=== PATIENT | male | born 1955 | race Caucasian/White ===

== ENCOUNTER → 2022-06-05 | Outpatient (CLI) | payer OTHER, SELFPAY ==
[~2022-06-05] MED LIST: IOHEXOL 350 MG/ML 100ML INFUS..BTL IV ONE; METOPROLOL TARTRATE 1 MG/ML 5ML VIAL IV ONE
== END | disposition home or self-care (01) ==
LOC: RAH 07:58
PROVIDERS: ATTEND Student in an Organized Health Care Education/Training Program
DX: I50.20 Unspecified systolic (congestive) heart failure (principal); I25.10 Atherosclerotic heart disease of native coronary artery without angina pectoris
CPT/HCPCS: 75574; Q9967; J3490

== ENCOUNTER 2022-06-28 19:29 | Inpatient (IN) | payer OTHER, MEDICARE ==
[~2022-06-28] VITALS: Ht 188 cm; Wt 72.4 kg
[2022-06-28] MEDS ORDERED: NITROGLYCERIN 50MG/D5W 250ML 250 BOT IV SCH (19:39)
[2022-06-28] MEDS ORDERED: ASPIRIN 325MG TAB PO ONE (20:00)
[2022-06-28] MEDS ORDERED: 0.9%NACL 1000ML 1,000 ML IV SCH ×2 (20:00→23:30)
[2022-06-28] MEDS ORDERED: ASPIRIN 81MG CHEW TAB PO ONE (20:00)
[2022-06-28] MEDS ORDERED: 0.9%NACL 1000ML 1,914 ML IV ONE (20:00)
[2022-06-28 20:14] LABS: EOSINOPHILS % (AUTO) 2.9 % (0.0-8.0); HEMATOCRIT 35.9 % (42-54); LYMPHOCYTES % (AUTO) 26.9 % (21.0-51.0); MEAN CORPUSCULAR HEMOGLOBIN 30.2 pg (27.0-33.0); MEAN CORPUSCULAR HGB CONC 35.4 g/dL (32.0-36.0); MEAN CORPUSCULAR VOLUME 85.5 fL (79-99); MONOCYTES % (AUTO) 10.6 % (3.0-13.0); NEUTROPHILS % (AUTO) 58.2 % (40.0-77.0); PLATELET COUNT (AUTO) 176 K/uL (130-400); WHITE BLOOD COUNT (AUTO) 5.1 K/uL (4.8-10.8)
[2022-06-28 20:23] LABS: CREATININE 1.2 mg/dL (0.5-1.5); POTASSIUM 3.8 mmol/L (3.5-5.1)
[2022-06-28 20:24] LABS: INR 0.94 (0.85-1.15); PROTHROMBIN TIME 10.3 SEC (9.6-11.6)
[2022-06-28 20:25] LABS: PARTIAL THROMBOPLASTIN TIME 22.8 SEC (26.3-35.5)
[2022-06-28 20:32] LABS: ALBUMIN 3.9 g/dL (3.5-5.0); TOTAL PROTEIN, SERUM 7.3 g/dL (6.0-8.3)
[2022-06-28 20:50] LABS: B-TYPE NATRIURETIC PEPTIDE 228 pg/mL (0-100)
[2022-06-28] MEDS ORDERED: IOHEXOL 350 MG/ML 100ML INFUS..BTL IV ONE (21:32)
[2022-06-28] MEDS ORDERED: MORPHINE 2 MG SYG IV PRN (23:30)
[2022-06-28] MEDS ORDERED: ACETAMINOPHEN 325 MG TAB PO PRN ×2 (23:30)
[2022-06-28] MEDS ORDERED: MORPHINE 4 MG SYG IV PRN (23:30)
[2022-06-28] MEDS ORDERED: ONDANSETRON 4MG INJ IV PRN (23:30)
[2022-06-29] VITALS (15 sets, daily range): BP systolic 88–172; BP diastolic 54–91
[2022-06-29] MEDS: HEPARIN 25,000 UNITS/250ML D5W 250 ML IV PRN ×2 (00:03→06:40)
[2022-06-29] MEDS ORDERED: HEPARIN 5,000 UNIT VIAL ONE (00:20)
[2022-06-29] MEDS: DOXYCYCLINE 100MG+NS 250ML 250 ML IV SCH ×3 (00:30→22:58)
[2022-06-29] MEDS: CEFTRIAXONE 1G VIAL IV SCH ×2 (00:30→22:58)
[2022-06-29] MEDS ORDERED: SODIUM CHLORIDE 3% FOR INHALATION 4 ML/AMP VIAL.NEB IH ONE ×3 (01:18→11:24)
[2022-06-29] MEDS ORDERED: FURO20TA4 PO (04:30)
[2022-06-29] MEDS ORDERED: CLOP75TA14 PO (04:30)
[2022-06-29] MEDS ORDERED: METF-446 PO (04:30)
[2022-06-29] MEDS ORDERED: CARV3.1262 PO (04:30)
[2022-06-29] MEDS ORDERED: LISI5TAB21 PO (04:30)
[2022-06-29 04:49] LABS: APPEARANCE,URINE CLEAR (CLEAR); BILIRUBIN,URINE NEGATIVE (NEGATIVE); COLOR,URINE LIGHT-YELLOW (YELLOW); GLUCOSE, URINE (UA) >=1000 mg/dL (NEGATIVE); KETONES,URINE NEGATIVE (NEGATIVE); LEUKOCYTE ESTERASE ,URINE NEGATIVE Leu/uL (NEGATIVE); NITRATE,URINE NEGATIVE (NEGATIVE); OCCULT BLOOD,URINE NEGATIVE (NEGATIVE); PROTEIN,URINE NEGATIVE (NEGATIVE); UROBILINOGEN,URINE 0.2 mg/dL (0.2-1.0)
[2022-06-29 05:00] LABS: WBC,URINE 0-1 /HPF (0-1)
[2022-06-29] MEDS ORDERED: DEXTROSE 50%-WATER 50 ML DISP.SYRIN IV PRN ×2 (05:00→09:00)
[2022-06-29] MEDS ORDERED: GLUCAGON 1MG KIT 1 MG ML IM PRN ×2 (05:00→09:00)
[2022-06-29] MEDS: INSULIN HUMULIN R 100 UNIT/ML 3ML SQ SCH ×4 (06:00→20:51)
[2022-06-29 06:20] LABS: INR 1.01 (0.85-1.15)
[2022-06-29 06:21] LABS: PARTIAL THROMBOPLASTIN TIME 76.7 SEC (26.3-35.5)
[2022-06-29 06:29] LABS: CREATININE 0.9 mg/dL (0.5-1.5); MAGNESIUM 1.8 mg/dL (1.80-2.40); PHOSPHORUS 4.2 mg/dL (2.5-4.9); POTASSIUM 3.6 mmol/L (3.5-5.1)
[2022-06-29 06:30] LABS: BASOPHILS % (AUTO) 0.9 % (0.0-5.0); EOSINOPHILS % (AUTO) 4.4 % (0.0-8.0); HEMATOCRIT 31.5 % (42-54); LYMPHOCYTES % (AUTO) 32.3 % (21.0-51.0); MEAN CORPUSCULAR HEMOGLOBIN 30.1 pg (27.0-33.0); MEAN CORPUSCULAR HGB CONC 34.9 g/dL (32.0-36.0); MEAN CORPUSCULAR VOLUME 86.3 fL (79-99); MONOCYTES % (AUTO) 10.2 % (3.0-13.0); NEUTROPHILS % (AUTO) 51.7 % (40.0-77.0); PLATELET COUNT (AUTO) 141 K/uL (130-400); RED BLOOD CELL COUNT(AUTO) 3.65 MIL/uL (4.50-6.20); RED CELL DISTRIBUTION WIDTH 13.1 % (11.0-15.5); WHITE BLOOD COUNT (AUTO) 4.3 K/uL (4.8-10.8)
[2022-06-29 06:34] LABS: HEMOGLOBIN A1C 9.7 % (4.0-6.0)
[2022-06-29] MEDS ORDERED: 0.9%NACL 1000ML 1,000 ML IV SCH (09:00)
[2022-06-29] MEDS: ASPIRIN 81MG CHEW TAB PO SCH (10:01)
[2022-06-29] MEDS: FAMOTIDINE 20MG VIAL IV SCH (10:02)
[2022-06-29] MEDS: CARVEDILOL 3.125 MG TABLET PO SCH ×2 (10:02→19:52)
[2022-06-30] VITALS (41 sets, daily range): BP systolic 65–197; BP diastolic 35–130
[2022-06-30 04:02] LABS: ABG BASE EXCESS -0.8 mmol/L (-2.0-3.0); ABG HCO3 23.2 mmol/L (21.0-28.0); ABG OXYGEN SATURATION 97.9 % (95.0-99.0); ABG PCO2 37 mmHg (35-48)
[2022-06-30 04:50] LABS: HEMATOCRIT 31.6 % (42-54); MEAN CORPUSCULAR HEMOGLOBIN 30.1 pg (27.0-33.0); MEAN CORPUSCULAR HGB CONC 34.5 g/dL (32.0-36.0); MEAN CORPUSCULAR VOLUME 87.3 fL (79-99); RED BLOOD CELL COUNT(AUTO) 3.62 MIL/uL (4.50-6.20); RED CELL DISTRIBUTION WIDTH 13.2 % (11.0-15.5); WHITE BLOOD COUNT (AUTO) 5.3 K/uL (4.8-10.8)
[2022-06-30 05:02] LABS: INR 0.98 (0.85-1.15); PROTHROMBIN TIME 10.7 SEC (9.6-11.6)
[2022-06-30 05:04] LABS: PARTIAL THROMBOPLASTIN TIME 24.2 SEC (26.3-35.5)
[2022-06-30 05:10] LABS: ALBUMIN 3.2 g/dL (3.5-5.0); CREATININE 0.7 mg/dL (0.5-1.5); POTASSIUM 3.8 mmol/L (3.5-5.1); THYROID STIMULATING HORMONE 3.23 uIU/mL (0.36-3.74); TOTAL PROTEIN, SERUM 6.1 g/dL (6.0-8.3)
[2022-06-30 05:21] LABS: HEMOGLOBIN A1C 10.8 % (4.0-6.0)
[2022-06-30] MEDS: INSULIN HUMULIN R 100 UNIT/ML 3ML SQ SCH ×2 (05:42→11:30)
[2022-06-30] MEDS ORDERED: FUROSEMIDE 20MG VIAL IV SCH (09:00)
[2022-06-30] MEDS ORDERED: SPIRONOLACTONE 25 MG TAB PO SCH (09:00)
[2022-06-30] MEDS: FAMOTIDINE 20MG VIAL IV SCH ×2 (09:13→20:03)
[2022-06-30] MEDS: ASPIRIN 81MG CHEW TAB PO SCH (09:14)
[2022-06-30] MEDS: CARVEDILOL 3.125 MG TABLET PO SCH (09:15)
[2022-06-30] MEDS: DOXYCYCLINE 100MG+NS 250ML 250 ML IV SCH (12:33)
[2022-06-30] MEDS ORDERED: 0.9%NACL 1000ML 1,000 ML IV ONE (13:43)
[2022-06-30] MEDS ORDERED: PROPOFOL 10 MG/ML 20ML VIAL IV ONE (14:37)
[2022-06-30] MEDS ORDERED: EPINEPHRINE PF 1MG (1:1,000) 1 MG/ML AMP ONE (14:37)
[2022-06-30] MEDS ORDERED: NOREPINEPHRINE BITARTRATE 1 MG/1 ML ML IV ONE (14:37)
[2022-06-30] MEDS ORDERED: PROTAMINE SULFATE 10 MG/ML 25ML VIAL IV ONE (14:37)
[2022-06-30] MEDS ORDERED: HEPARIN 10,000 UNIT/10ML (1,000 UNIT/ML) VIAL ONE (14:37)
[2022-06-30] MEDS ORDERED: AMINOCAPROIC ACID 5,000MG VIAL ONE (14:37)
[2022-06-30] MEDS ORDERED: FENTANYL CITRATE PF 50 MCG/1 ML 20ML VIAL IJ ONE (14:37)
[2022-06-30] MEDS ORDERED: ESMOLOL HCL 10 MG/ML 10 ML VIAL ONE (14:37)
[2022-06-30] MEDS ORDERED: MIDAZOLAM HCL 1 MG/ML 2ML VIAL ONE (14:38)
[2022-06-30] MEDS ORDERED: ROCURONIUM 10MG/1ML SYR 10 MG/ML ML ONE (14:38)
[2022-06-30] MEDS ORDERED: KETAMINE 50MG/ML SYRINGE 50 MG/ML DISP.SYRIN IV ONE (14:38)
[2022-06-30] MEDS ORDERED: CEFAZOLIN SODIUM 2 GM VIAL IV ONE (15:00)
[2022-06-30 16:33] LABS: ABG BASE EXCESS -3.3 mmol/L (-2.0-3.0); ABG HCO3 21.6 mmol/L (21.0-28.0); ABG OXYGEN SATURATION 99.2 % (95.0-99.0); ABG PCO2 38 mmHg (35-48)
[2022-06-30] MEDS ORDERED: CEFAZOLIN SODIUM 1 GM VIAL IVP SCH (17:00)
[2022-06-30] MEDS ORDERED: GLUCAGON 1MG KIT 1 MG ML IM PRN (17:30)
[2022-06-30] MEDS ORDERED: ACETAMINOPHEN 650 MG SUPPOSITORY RC PRN (17:30)
[2022-06-30] MEDS ORDERED: DEXTROSE 50%-WATER 50 ML DISP.SYRIN IV PRN (17:30)
[2022-06-30] MEDS ORDERED: 0.9%NACL 10ML VIAL IVP PRN (17:30)
[2022-06-30] MEDS ORDERED: 0.9%NACL 1000ML 1,000 ML IV SCH (17:30)
[2022-06-30] MEDS ORDERED: ALBUMIN (HUMAN) 5% 250 ML IV PRN (17:30)
[2022-06-30] MEDS ORDERED: ACETAMINOPHEN 325 MG TAB PO PRN (17:30)
[2022-06-30] MEDS ORDERED: NOREPINEPHRIN 4MG/NS 250ML 250 ML IV PRN (17:30)
[2022-06-30] MEDS ORDERED: ONDANSETRON 4MG INJ IV PRN (17:30)
[2022-06-30] MEDS ORDERED: NITROGLYCERIN 50MG/D5W 250ML 250 BOT IV SCH (17:30)
[2022-06-30] MEDS ORDERED: POTASSIUM PHOS 15 mMOL+NS250ML 250 ML IV PRN (17:30)
[2022-06-30] MEDS ORDERED: MORPHINE 2 MG SYG IV PRN ×2 (17:30)
[2022-06-30] MEDS ORDERED: AMINOCAPROIC ACID 5,000MG VIAL 15,000 MG in 0.9% NACL 250ML 250 ML IV SCH (17:30)
[2022-06-30] MEDS ORDERED: 0.9% NACL 500ML IV.SOLN 500 ML IV SCH (17:30)
[2022-06-30] MEDS ORDERED: PROPOFOL 1000 MG/100 ML 100 ML IV PRN (17:30)
[2022-06-30 18:01] LABS: ABG BASE EXCESS -6.7 mmol/L (-2.0-3.0); ABG OXYGEN SATURATION 99.4 % (95.0-99.0); ABG PCO2 39 mmHg (35-48)
[2022-06-30] MEDS ORDERED: KETAMINE HCL 100 MG/ML 5ML VIAL IJ ONE (18:03)
[2022-06-30] MEDS ORDERED: SODIUM BICARB 8.4% 50ML SYRINGE ONE (18:07)
[2022-06-30 18:51] LABS: HEMATOCRIT 31.1 % (42-54); MEAN CORPUSCULAR HEMOGLOBIN 30.3 pg (27.0-33.0); MEAN CORPUSCULAR HGB CONC 34.7 g/dL (32.0-36.0); MEAN CORPUSCULAR VOLUME 87.1 fL (79-99); RED BLOOD CELL COUNT(AUTO) 3.57 MIL/uL (4.50-6.20); RED CELL DISTRIBUTION WIDTH 13.2 % (11.0-15.5)
[2022-06-30 18:53] LABS: ABG BASE EXCESS -2.2 mmol/L (-2.0-3.0); ABG HCO3 22.8 mmol/L (21.0-28.0); ABG PCO2 40 mmHg (35-48)
[2022-06-30 19:02] LABS: CREATININE 0.7 mg/dL (0.5-1.5); MAGNESIUM 1.4 mg/dL (1.80-2.40); PHOSPHORUS 3.9 mg/dL (2.5-4.9); POTASSIUM 4.9 mmol/L (3.5-5.1)
[2022-06-30] MEDS: SODIUM BICARB 50MEQ 50ML VIAL IV PRN ×4 (19:11→22:26)
[2022-06-30] MEDS: MAGNESIUM 2GM PREMIX 50ML 50 ML IV PRN (19:12)
[2022-06-30 19:34] LABS: INR 1.25 (0.85-1.15); PROTHROMBIN TIME 13.5 SEC (9.6-11.6)
[2022-06-30 19:36] LABS: PARTIAL THROMBOPLASTIN TIME 27.1 SEC (26.3-35.5)
[2022-06-30] MEDS ORDERED: ALBUMIN (HUMAN) 5% 250 ML IV ONE (20:02)
[2022-06-30] MEDS: ATORVASTATIN 40 MG TABLET PO SCH (20:03)
[2022-06-30] MEDS: INSULIN REGULAR, HUMAN 3ML 100 UNIT in 0.9%NACL 100ML 99 ML IV SCH ×2 (20:12)
[2022-06-30 20:19] LABS: ABG BASE EXCESS -2.4 mmol/L (-2.0-3.0); ABG HCO3 22.5 mmol/L (21.0-28.0); ABG OXYGEN SATURATION 98.6 % (95.0-99.0); ABG PCO2 39 mmHg (35-48)
[2022-06-30] MEDS: POTASSIUM CHLORIDE 20MEQ/100ML 100 ML IV PRN ×2 (20:31→21:25)
[2022-06-30] MEDS: CALCIUM GLUC 1GM 1 GM in 0.9%NACL 50ML 50 ML IV PRN ×3 (20:57→23:39)
[2022-06-30 21:22] LABS: ABG BASE EXCESS -2.6 mmol/L (-2.0-3.0); ABG HCO3 21.8 mmol/L (21.0-28.0); ABG OXYGEN SATURATION 98.5 % (95.0-99.0); ABG PCO2 36 mmHg (35-48)
[2022-06-30 22:25] LABS: ABG BASE EXCESS -1.5 mmol/L (-2.0-3.0); ABG HCO3 22.4 mmol/L (21.0-28.0); ABG OXYGEN SATURATION 98.5 % (95.0-99.0); ABG PCO2 35 mmHg (35-48)
[2022-06-30 22:25] LABS: HEMATOCRIT 28.8 % (42-54); MEAN CORPUSCULAR HEMOGLOBIN 30.4 pg (27.0-33.0); MEAN CORPUSCULAR HGB CONC 35.1 g/dL (32.0-36.0); MEAN CORPUSCULAR VOLUME 86.7 fL (79-99); RED BLOOD CELL COUNT(AUTO) 3.32 MIL/uL (4.50-6.20); RED CELL DISTRIBUTION WIDTH 13.4 % (11.0-15.5); WHITE BLOOD COUNT (AUTO) 22.7 K/uL (4.8-10.8)
[2022-06-30] MEDS: CEFAZOLIN SODIUM 1 GM VIAL IV SCH (22:26)
[2022-06-30 22:33] LABS: MAGNESIUM 2.3 mg/dL (1.80-2.40); POTASSIUM 4.3 mmol/L (3.5-5.1)
[2022-06-30 23:32] LABS: ABG BASE EXCESS 0.7 mmol/L (-2.0-3.0); ABG HCO3 23.6 mmol/L (21.0-28.0); ABG OXYGEN SATURATION 98.2 % (95.0-99.0); ABG PCO2 32 mmHg (35-48)
[2022-07-01] VITALS (128 sets, daily range): BP systolic 67–179; BP diastolic 32–76
[2022-07-01 00:41] LABS: ABG BASE EXCESS 0.8 mmol/L (-2.0-3.0); ABG HCO3 24.4 mmol/L (21.0-28.0); ABG OXYGEN SATURATION 98.5 % (95.0-99.0); ABG PCO2 35 mmHg (35-48)
[2022-07-01] MEDS: POTASSIUM CHLORIDE 20MEQ/100ML 100 ML IV PRN ×8 (00:42→09:17)
[2022-07-01 02:52] LABS: MAGNESIUM 1.9 mg/dL (1.80-2.40)
[2022-07-01 02:53] LABS: POTASSIUM 2.7 mmol/L (3.5-5.1)
[2022-07-01] MEDS: MAGNESIUM 2GM PREMIX 50ML 50 ML IV PRN ×2 (03:46→15:35)
[2022-07-01 04:18] LABS: HEMATOCRIT 28.6 % (42-54); MEAN CORPUSCULAR HEMOGLOBIN 30.1 pg (27.0-33.0); MEAN CORPUSCULAR HGB CONC 35.3 g/dL (32.0-36.0); MEAN CORPUSCULAR VOLUME 85.1 fL (79-99); RED BLOOD CELL COUNT(AUTO) 3.36 MIL/uL (4.50-6.20); RED CELL DISTRIBUTION WIDTH 13.5 % (11.0-15.5); WHITE BLOOD COUNT (AUTO) 17.1 K/uL (4.8-10.8)
[2022-07-01 04:19] LABS: ABG BASE EXCESS -0.1 mmol/L (-2.0-3.0); ABG HCO3 24.1 mmol/L (21.0-28.0); ABG OXYGEN SATURATION 98.6 % (95.0-99.0); ABG PCO2 38 mmHg (35-48)
[2022-07-01 04:29] LABS: CREATININE 1.2 mg/dL (0.5-1.5); INR 1.07 (0.85-1.15); MAGNESIUM 2.5 mg/dL (1.80-2.40); PHOSPHORUS 0.9 mg/dL (2.5-4.9); PROTHROMBIN TIME 11.6 SEC (9.6-11.6)
[2022-07-01 04:30] LABS: PARTIAL THROMBOPLASTIN TIME 24.4 SEC (26.3-35.5)
[2022-07-01 05:29] LABS: ABG HCO3 23.5 mmol/L (21.0-28.0); ABG OXYGEN SATURATION 98.5 % (95.0-99.0); ABG PCO2 38 mmHg (35-48)
[2022-07-01] MEDS: CEFAZOLIN SODIUM 1 GM VIAL IV SCH ×2 (05:35→13:47)
[2022-07-01] MEDS: SODIUM BICARB 50MEQ 50ML VIAL IV PRN (05:35)
[2022-07-01] MEDS: EPINEPHRINE PF 1MG (1:1,000) 10 MG in 0.9% NACL 250ML 250 ML IV PRN (07:51)
[2022-07-01] MEDS: FAMOTIDINE 20MG VIAL IV SCH (07:52)
[2022-07-01] MEDS: FUROSEMIDE 20MG VIAL IV SCH ×2 (07:52→20:33)
[2022-07-01] MEDS: ASPIRIN 81MG CHEW TAB PO SCH (07:53)
[2022-07-01 07:58] LABS: ABG BASE EXCESS 1.4 mmol/L (-2.0-3.0); ABG OXYGEN SATURATION 98.5 % (95.0-99.0); ABG PCO2 36 mmHg (35-48)
[2022-07-01] MEDS: INSULIN REGULAR, HUMAN 3ML 100 UNIT in 0.9%NACL 100ML 99 ML IV SCH ×2 (07:58)
[2022-07-01 11:46] LABS: POTASSIUM 4.4 mmol/L (3.5-5.1)
[2022-07-01] MEDS: CALCIUM GLUC 1GM 1 GM in 0.9%NACL 50ML 50 ML IV PRN ×4 (11:46→15:25)
[2022-07-01] MEDS: TRAMADOL HCL 50 MG TABLET PO PRN ×3 (12:18→23:41)
[2022-07-01] MEDS ORDERED: IBUP-2482 PO (14:41)
[2022-07-01] MEDS ORDERED: FAMO-136 PO (14:41)
[2022-07-01 15:29] LABS: MAGNESIUM 1.9 mg/dL (1.80-2.40); PHOSPHORUS 3.8 mg/dL (2.5-4.9); POTASSIUM 4.4 mmol/L (3.5-5.1)
[2022-07-01] MEDS ORDERED: NOREPINEPHRIN 8MG/250ML NS PMX 250 ML IV PRN (17:30)
[2022-07-01 20:07] LABS: MAGNESIUM 2.4 mg/dL (1.80-2.40); POTASSIUM 4.3 mmol/L (3.5-5.1)
[2022-07-01] MEDS: ATORVASTATIN 40 MG TABLET PO SCH (20:28)
[2022-07-01] MEDS: FAMOTIDINE 20MG TAB PO SCH (20:28)
[2022-07-02] VITALS (60 sets, daily range): BP systolic 92–160; BP diastolic 34–78
[2022-07-02 04:12] LABS: CREATININE 0.9 mg/dL (0.5-1.5); POTASSIUM 4.7 mmol/L (3.5-5.1)
[2022-07-02 04:58] LABS: HEMATOCRIT 23.7 % (42-54); MEAN CORPUSCULAR HEMOGLOBIN 30.3 pg (27.0-33.0); MEAN CORPUSCULAR HGB CONC 34.6 g/dL (32.0-36.0); MEAN CORPUSCULAR VOLUME 87.5 fL (79-99); RED BLOOD CELL COUNT(AUTO) 2.71 MIL/uL (4.50-6.20); RED CELL DISTRIBUTION WIDTH 14.4 % (11.0-15.5); WHITE BLOOD COUNT (AUTO) 10.9 K/uL (4.8-10.8)
[2022-07-02] MEDS: METOPROLOL TARTRATE 25 MG TAB PO SCH ×2 (08:46→19:58)
[2022-07-02] MEDS: TRAMADOL HCL 50 MG TABLET PO PRN ×2 (08:51→19:58)
[2022-07-02] MEDS: ASPIRIN 81MG CHEW TAB PO SCH (08:51)
[2022-07-02] MEDS: FAMOTIDINE 20MG TAB PO SCH ×2 (08:52→19:54)
[2022-07-02] MEDS: FUROSEMIDE 20 MG TABLET PO SCH ×2 (08:52→16:03)
[2022-07-02] MEDS: ACETAMINOPHEN 325 MG TAB PO PRN (09:41)
[2022-07-02] MEDS: INSULIN REGULAR, HUMAN 3ML 100 UNIT in 0.9%NACL 100ML 99 ML IV SCH ×2 (10:06)
[2022-07-02] MEDS ORDERED: ALBUMIN (HUMAN) 5% 250 ML IV ONE (11:30)
[2022-07-02] MEDS: ATORVASTATIN 40 MG TABLET PO SCH (19:54)
[2022-07-02] MEDS: INSULIN HUMULIN R 100 UNIT/ML 3ML SQ SCH (20:50)
[2022-07-02] MEDS: EPINEPHRINE PF 1MG (1:1,000) 10 MG in 0.9% NACL 250ML 250 ML IV PRN (20:54)
[2022-07-02] MEDS ORDERED: EPINEPHRINE 1 MG/ML 30ML VIAL IJ ONE (23:21)
[2022-07-03] VITALS (35 sets, daily range): BP systolic 89–148; BP diastolic 34–72
[2022-07-03 03:55] LABS: HEMATOCRIT 21.2 % (42-54); MEAN CORPUSCULAR HEMOGLOBIN 30.3 pg (27.0-33.0); MEAN CORPUSCULAR HGB CONC 34.4 g/dL (32.0-36.0); RED BLOOD CELL COUNT(AUTO) 2.41 MIL/uL (4.50-6.20); RED CELL DISTRIBUTION WIDTH 14.2 % (11.0-15.5); WHITE BLOOD COUNT (AUTO) 10.3 K/uL (4.8-10.8)
[2022-07-03 04:12] LABS: CREATININE 0.9 mg/dL (0.5-1.5); POTASSIUM 4.3 mmol/L (3.5-5.1)
[2022-07-03] MEDS: INSULIN HUMULIN R 100 UNIT/ML 3ML SQ SCH ×4 (06:42→20:20)
[2022-07-03] MEDS: METOPROLOL TARTRATE 25 MG TAB PO SCH ×2 (07:56→20:21)
[2022-07-03] MEDS: ASPIRIN 81MG CHEW TAB PO SCH (08:30)
[2022-07-03] MEDS: FAMOTIDINE 20MG TAB PO SCH ×2 (08:30→20:15)
[2022-07-03] MEDS: FUROSEMIDE 20 MG TABLET PO SCH ×2 (08:31→16:27)
[2022-07-03] MEDS: ENOXAPARIN SODIUM 30 MG/0.3 ML SQ SCH (08:32)
[2022-07-03] MEDS: ATORVASTATIN 40 MG TABLET PO SCH (20:15)
[2022-07-03] MEDS: ACETAMINOPHEN 325 MG TAB PO PRN (20:16)
[2022-07-04] VITALS (31 sets, daily range): BP systolic 85–116; BP diastolic 34–73
[2022-07-04] MEDS: ACETAMINOPHEN 325 MG TAB PO PRN (04:33)
[2022-07-04 05:33] LABS: HEMATOCRIT 23.2 % (42-54); MEAN CORPUSCULAR HEMOGLOBIN 30.1 pg (27.0-33.0); MEAN CORPUSCULAR HGB CONC 34.9 g/dL (32.0-36.0); MEAN CORPUSCULAR VOLUME 86.2 fL (79-99); RED BLOOD CELL COUNT(AUTO) 2.69 MIL/uL (4.50-6.20); RED CELL DISTRIBUTION WIDTH 13.7 % (11.0-15.5); WHITE BLOOD COUNT (AUTO) 5.5 K/uL (4.8-10.8)
[2022-07-04] MEDS: INSULIN HUMULIN R 100 UNIT/ML 3ML SQ SCH ×4 (06:02→20:17)
[2022-07-04 06:07] LABS: POTASSIUM 3.3 mmol/L (3.5-5.1)
[2022-07-04] MEDS ORDERED: KCL 20 MEQ ERTAB PO ONE (06:22)
[2022-07-04] MEDS ORDERED: POTASSIUM CHLORIDE 10% ELIXIR 20 MEQ/15 ML UDCUP PO PRN (06:30)
[2022-07-04] MEDS: TRAMADOL HCL 50 MG TABLET PO PRN (06:37)
[2022-07-04] MEDS: ASPIRIN 81MG CHEW TAB PO SCH (08:06)
[2022-07-04] MEDS: ENOXAPARIN SODIUM 30 MG/0.3 ML SQ SCH (08:06)
[2022-07-04] MEDS: KCL 20 MEQ ERTAB PO PRN ×2 (08:07→16:19)
[2022-07-04] MEDS: FAMOTIDINE 20MG TAB PO SCH ×2 (08:07→20:15)
[2022-07-04] MEDS: LACTULOSE 20 GM/30 ML UDCUP PO PRN (17:06)
[2022-07-04] MEDS: ATORVASTATIN 40 MG TABLET PO SCH (20:15)
[2022-07-05] MEDS: ACETAMINOPHEN 325 MG TAB PO PRN (02:32)
[2022-07-05 05:18] VITALS: BP 100/54
[2022-07-05] MEDS: INSULIN HUMULIN R 100 UNIT/ML 3ML SQ SCH ×3 (06:36→16:11)
[2022-07-05 07:00] VITALS: BP 106/63
[2022-07-05] MEDS: FAMOTIDINE 20MG TAB PO SCH (08:45)
[2022-07-05] MEDS: ASPIRIN 81MG CHEW TAB PO SCH (08:45)
[2022-07-05] MEDS: ENOXAPARIN SODIUM 30 MG/0.3 ML SQ SCH (08:46)
[2022-07-05] MEDS: KCL 20 MEQ ERTAB PO PRN (08:49)
[2022-07-05] MEDS ORDERED: FUROSEMIDE 20 MG TABLET PO SCH (09:00)
[2022-07-05] MEDS ORDERED: DOCUSATE SODIUM 100 MG CAP PO SCH (09:00)
[2022-07-05] MEDS: LACTULOSE 20 GM/30 ML UDCUP PO PRN (10:10)
[2022-07-05 11:00] VITALS: BP 106/62
[2022-07-05] MEDS ORDERED: ATOR40TA69 PO (12:05)
[2022-07-05] MEDS ORDERED: SPIR25TA PO (12:05)
[2022-07-05] MEDS ORDERED: FURO20TA6 PO (12:05)
[2022-07-05] MEDS ORDERED: ASPI-1005 PO (12:05)
[2022-07-05 16:00] VITALS: BP 107/58
== END 2022-07-05 14:05 | disposition home or self-care (01) | DRG 233 ==
LOC: EDH 19:29 → INTOOBSV 22:45 → EDHIP 22:45 → OBSVTOIN 22:45 → 2CH 06-29 08:00 → 2DH 06-29 09:16 → 2CV 06-30 14:14 → 2BH 07-01 16:38 → 2DH 07-04 17:12
PROVIDERS: ADMIT Internal Medicine; ATTEND Internal Medicine
PROC: 4A023N8 Measurement of Cardiac Sampling and Pressure, Bilateral, Percutaneous Approach (ICD-10-PCS; 2022-06-29)
PROC: B2111ZZ Fluoroscopy of Multiple Coronary Arteries using Low Osmolar Contrast (ICD-10-PCS; 2022-06-29)
PROC: B2151ZZ Fluoroscopy of Left Heart using Low Osmolar Contrast (ICD-10-PCS; 2022-06-29)
PROC: 30233N1 Transfusion of Nonautologous Red Blood Cells into Peripheral Vein, Percutaneous Approach (ICD-10-PCS; 2022-06-30)
PROC: 02100Z9 Bypass Coronary Artery, One Artery from Left Internal Mammary, Open Approach (ICD-10-PCS; principal; 2022-06-30 14:52)
PROC: 0211093 Bypass Coronary Artery, Two Arteries from Coronary Artery with Autologous Venous Tissue, Open Approach (ICD-10-PCS; 2022-06-30 14:52)
PROC: 06BQ4ZZ Excision of Left Saphenous Vein, Percutaneous Endoscopic Approach (ICD-10-PCS; 2022-06-30 14:52)
DX: I25.110 Atherosclerotic heart disease of native coronary artery with unstable angina pectoris (principal); I50.23 Acute on chronic systolic (congestive) heart failure; E87.1 Hypo-osmolality and hyponatremia; D62 Acute posthemorrhagic anemia; I11.0 Hypertensive heart disease with heart failure; E11.65 Type 2 diabetes mellitus with hyperglycemia; E11.51 Type 2 diabetes mellitus with diabetic peripheral angiopathy without gangrene; E78.00 Pure hypercholesterolemia, unspecified; F10.20 Alcohol dependence, uncomplicated; Z20.822 Contact with and (suspected) exposure to COVID-19; Z79.02 Long term (current) use of antithrombotics/antiplatelets; Z79.84 Long term (current) use of oral hypoglycemic drugs; Z79.899 Other long term (current) drug therapy; Z95.5 Presence of coronary angioplasty implant and graft; Z82.49 Family history of ischemic heart disease and other diseases of the circulatory system; Z83.3 Family history of diabetes mellitus
CPT/HCPCS: 36415; 36600; 71045; 71275; 80048; 80053; 80061; 81001; 82330; 82435; 82803; 82947; 82948; 83036; 83605; 83735; 83880; 84100; 84132; 84295; 84443; 84484; 85018; 85025; 85027; 85347; 85378; 85384; 85610; 85730; 86850; 86900; 86901; 86923; 87040; 87635; 93005; 93306; 93312; 93356; 93460; 93880; 94002; 94003; 94010; 94640; 97039; 99156; 99157; A7048; C9803; G0378; J0171; J0610; J0690; J0696; J1644; J1650; J1815; J1940; J2250; J2440; J2704; J2720; J3010; J3475; J3480; J3490; J7030; J7040; J7050; P9016; P9045; Q9967

== ENCOUNTER → 2022-09-20 | Outpatient (CLI) | payer OTHER ==
[~2022-09-20] MED LIST changes: +ASPI-1005 PO; +ATOR40TA69 PO; +FAMO-136 PO; +FURO20TA6 PO; -IOHEXOL 350 MG/ML 100ML INFUS..BTL IV ONE; +METF-446 PO; -METOPROLOL TARTRATE 1 MG/ML 5ML VIAL IV ONE; +SPIR25TA PO
== END | disposition home or self-care (01) ==
LOC: SHCH 08:25
PROVIDERS: ATTEND Student in an Organized Health Care Education/Training Program
DX: I11.0 Hypertensive heart disease with heart failure (principal); I50.9 Heart failure, unspecified; I34.0 Nonrheumatic mitral (valve) insufficiency; E11.9 Type 2 diabetes mellitus without complications; E78.5 Hyperlipidemia, unspecified; Z95.1 Presence of aortocoronary bypass graft
CPT/HCPCS: 93306

== ENCOUNTER → 2023-09-13 | Outpatient (CLI) | payer OTHER, MEDICARE ==
[~2023-09-13] MED LIST changes: +CARV3.12 PO; +EMPA10TA PO; -FURO20TA6 PO; +FURO40TA7 PO; +IBUP-2784 PO; +PREG50CA64 PO
== END | disposition home or self-care (01) ==
LOC: SHCH 10:31
PROVIDERS: ATTEND Student in an Organized Health Care Education/Training Program
DX: I70.203 Unspecified atherosclerosis of native arteries of extremities, bilateral legs (principal)
CPT/HCPCS: 93925

== ENCOUNTER → 2023-09-28 | Outpatient (CLI) | payer OTHER ==
[2023-09-28 12:35] LABS: ALBUMIN 3.9 g/dL (3.5-5.0); BILIRUBIN,TOTAL 0.6 mg/dL (0.2-1.0); CREATININE 0.9 mg/dL (0.5-1.5); POTASSIUM 4.6 mmol/L (3.5-5.1); TOTAL PROTEIN, SERUM 7.4 g/dL (6.0-8.3)
== END | disposition home or self-care (01) ==
LOC: LAB 11:02
PROVIDERS: ATTEND Student in an Organized Health Care Education/Training Program
DX: I73.9 Peripheral vascular disease, unspecified (principal)
CPT/HCPCS: 36415; 80053

== ENCOUNTER 2024-04-11 13:57 | Inpatient (IN) | payer OTHER, MEDICARE ==
[~2024-04-11] VITALS: Ht 188 cm; Wt 67.9 kg
[2024-04-11 14:28] LABS: BASOPHILS # (AUTO) 0.05 K/uL (0.00-0.20); BASOPHILS % (AUTO) 0.8 % (0.0-5.0); EOSINOPHILS # (AUTO) 0.34 K/uL (0.00-0.70); EOSINOPHILS % (AUTO) 5.7 % (0.0-8.0); HEMATOCRIT 30.7 % (42-54); IMMATURE GRANULOCYTE ABSOLUTE 0.03 K/uL (0-1); LYMPHOCYTES # (AUTO) 0.9 K/uL (1.0-4.8); LYMPHOCYTES % (AUTO) 14.6 % (21.0-51.0); MEAN CORPUSCULAR HEMOGLOBIN 29.2 pg (27.0-33.0); MEAN CORPUSCULAR HGB CONC 34.2 g/dL (32.0-36.0); MEAN CORPUSCULAR VOLUME 85.5 fL (79-99); MONOCYTES # (AUTO) 0.7 K/uL (0.1-1.0); MONOCYTES % (AUTO) 12.4 % (3.0-13.0); NEUTROPHILS # (AUTO) 3.9 K/uL (1.8-7.7); PLATELET COUNT (AUTO) 283 K/uL (130-400); RED BLOOD CELL COUNT(AUTO) 3.59 MIL/uL (4.50-6.20); RED CELL DISTRIBUTION WIDTH 12.8 % (11.0-15.5)
[2024-04-11 14:38] LABS: CREATININE 0.9 mg/dL (0.5-1.3); POTASSIUM 3.8 mmol/L (3.5-5.1)
[2024-04-11 14:42] LABS: ALBUMIN 3.4 g/dL (3.5-5.0); BILIRUBIN,TOTAL 0.4 mg/dL (0.2-1.0); TOTAL PROTEIN, SERUM 7.6 g/dL (6.0-8.3)
[2024-04-11 14:46] LABS: PROTHROMBIN TIME 10.8 SEC (9.6-11.6)
[2024-04-11 14:48] LABS: PARTIAL THROMBOPLASTIN TIME 31.1 SEC (26.3-35.5)
[2024-04-11 15:04] LABS: B-TYPE NATRIURETIC PEPTIDE 121 pg/mL (0-100)
[2024-04-11] MEDS: FUROSEMIDE 40MG VIAL IV ONE (15:08)
[2024-04-11] MEDS ORDERED: ACETAMINOPHEN 325 MG TAB PO PRN (16:30)
[2024-04-11] MEDS ORDERED: ONDANSETRON 4MG INJ IVP PRN (16:30)
[2024-04-11] MEDS: INSULIN HUMULIN R 100 UNIT/ML 3ML SQ SCH (16:30)
[2024-04-11] MEDS ORDERED: SACU1TAB PO (17:03)
[2024-04-11] MEDS ORDERED: DIGO125T71 PO (17:03)
[2024-04-11] MEDS ORDERED: EPLE25TA11 PO (17:03)
[2024-04-11] MEDS ORDERED: ATOR-2 PO (17:03)
[2024-04-11] MEDS ORDERED: PREG150C47 PO (17:03)
[2024-04-11] MEDS ORDERED: DULO30CA52 PO (17:03)
[2024-04-11] MEDS: METFORMIN HCL 500 MG TABLET PO SCH (17:12)
[2024-04-11 17:24] LABS: TOTAL PROTEIN, SERUM 7.6 g/dL (6.0-8.3)
[2024-04-11 17:29] LABS: HEMOGLOBIN A1C 7.1 % (4.0-6.0)
[2024-04-11] MEDS ORDERED: LACTULOSE 20 GM/30 ML UDCUP PO PRN (17:30)
[2024-04-11 18:13] VITALS: BP 120/73; PULSE 70; RESP 19
[2024-04-11 19:20] VITALS: O2SAT 97
[2024-04-11 19:34] LABS: ABG BASE EXCESS 2.8 mmol/L (-2.0-3.0); ABG HCO3 26.2 mmol/L (21.0-28.0); ABG OXYGEN SATURATION 96.4 % (95.0-99.0); ABG PCO2 37 mmHg (35-48); ABG PH 7.471 (7.35-7.450); PO2, ARTERIAL BG 79.3 mmHg (83.0-108.0); VENT MODE, BG RA (ROOM AIR)
[2024-04-11 20:00] VITALS: BP 100/59; PULSE 74; RESP 18
[2024-04-11] MEDS: FAMOTIDINE 20MG VIAL IV SCH (20:28)
[2024-04-11] MEDS: SACUBITRIL/VALSARTAN 1 EACH TABLET PO SCH (20:28)
[2024-04-11] MEDS: CARVEDILOL 3.125 MG TABLET PO SCH (20:29)
[2024-04-11] MEDS: FUROSEMIDE 20MG VIAL IV SCH (20:29)
[2024-04-11] MEDS: ***HM***(Eplerenone 25 MG) PO SCH (20:29)
[2024-04-11] MEDS: PREGABALIN 75 MG CAPSULE PO SCH (20:29)
[2024-04-11] MEDS ORDERED: GUAIFENESIN-DM 200/20 MG 10 ML PO PRN (21:00)
[2024-04-11] MEDS ORDERED: ALBUTEROL 0.083% 2.5 MG/3 ML INH IH PRN (21:00)
[2024-04-11 21:33] LABS: SARS-CoV-2, RNA, NAAT NEGATIVE SARS CoV-2 (NEGATIVE)
[2024-04-11 21:40] LABS: INFLUENZA TYPE A Negative For Type A (NEGATIVE); INFLUENZA TYPE B Negative For Type B (NEGATIVE)
[2024-04-11] MEDS: IPRATROPIUM 0.5 MG/2.5 ML INH IH SCH (22:00)
[2024-04-12] VITALS (7 sets, daily range): BP systolic 95–121; BP diastolic 53–70; PULSE 60–74; RESP 16–18; O2SAT 92–98
[2024-04-12 04:59] LABS: BASOPHILS # (AUTO) 0.06 K/uL (0.00-0.20); BASOPHILS % (AUTO) 0.8 % (0.0-5.0); EOSINOPHILS # (AUTO) 0.47 K/uL (0.00-0.70); EOSINOPHILS % (AUTO) 6.3 % (0.0-8.0); HEMATOCRIT 30.8 % (42-54); IMMATURE GRANULOCYTE ABSOLUTE 0.04 K/uL (0-1); LYMPHOCYTES # (AUTO) 1.2 K/uL (1.0-4.8); LYMPHOCYTES % (AUTO) 15.4 % (21.0-51.0); MEAN CORPUSCULAR HEMOGLOBIN 28.7 pg (27.0-33.0); MEAN CORPUSCULAR HGB CONC 33.1 g/dL (32.0-36.0); MEAN CORPUSCULAR VOLUME 86.5 fL (79-99); MONOCYTES % (AUTO) 13.1 % (3.0-13.0); NEUTROPHILS # (AUTO) 4.8 K/uL (1.8-7.7); NEUTROPHILS % (AUTO) 63.9 % (40.0-77.0); PLATELET COUNT (AUTO) 275 K/uL (130-400); RED BLOOD CELL COUNT(AUTO) 3.56 MIL/uL (4.50-6.20); RED CELL DISTRIBUTION WIDTH 12.7 % (11.0-15.5); WHITE BLOOD COUNT (AUTO) 7.5 K/uL (4.8-10.8)
[2024-04-12 05:02] LABS: CREATININE 0.9 mg/dL (0.5-1.3); POTASSIUM 3.5 mmol/L (3.5-5.1)
[2024-04-12 05:14] LABS: INR 0.96 (0.85-1.15); PROTHROMBIN TIME 10.4 SEC (9.6-11.6)
[2024-04-12 05:15] LABS: PARTIAL THROMBOPLASTIN TIME 31.4 SEC (26.3-35.5)
[2024-04-12] MEDS: DIGOXIN 125 MCG TABLET PO SCH (08:22)
[2024-04-12] MEDS: ATORVASTATIN 40 MG TABLET PO SCH (08:22)
[2024-04-12] MEDS: ASPIRIN 81MG CHEW TAB PO SCH (08:22)
[2024-04-12] MEDS: DULOXETINE HCL 30 MG CAP PO SCH (08:22)
[2024-04-12] MEDS ORDERED: IPRATROPIUM 0.5 MG/2.5 ML INH IH PRN (09:00)
[2024-04-12] MEDS ORDERED: FUROSEMIDE 20MG VIAL IV SCH (09:00)
[2024-04-12] MEDS ORDERED: POTASSIUM CHLORIDE 10% ELIXIR 20 MEQ/15 ML UDCUP PO PRN (09:30)
[2024-04-12] MEDS ORDERED: POTASSIUM CHLORIDE 20MEQ/100ML 100 ML IV PRN ×2 (09:30)
[2024-04-12] MEDS: MORPHINE 2 MG SYG IVP ONE (13:37)
[2024-04-12 15:08] LABS: GLUCOSE PLEURAL FLUID 89; PROTEIN PLEURAL FLUID 5.2 mg/dL
[2024-04-12 15:09] LABS: APPEARANCE BODY FLUID BLOODY (CLEAR); SPECIMENTYPE,BODY FLUID PLEURAL
[2024-04-12 15:10] LABS: COLOR,BODY FLUID RED (LT YELLOW); TOTAL VOLUME,BODY FLUID 1300 mL
[2024-04-12 15:18] LABS: BODY FLUID WBC 419 /cu. mm.
[2024-04-12 15:22] LABS: PH PLEURAL FLUID 7
[2024-04-12 16:20] LABS: BF LYMPHOCYTE 2 %; BF MONOCYTE 2 %; BF TOTAL CELLS COUNTED 100
[2024-04-12] MEDS: KCL 20 MEQ ERTAB PO PRN (20:20)
[2024-04-13] VITALS (10 sets, daily range): BP systolic 94–118; BP diastolic 51–68; PULSE 71–100; RESP 18–19; O2SAT 95–98
[2024-04-13 04:01] LABS: BASOPHILS # (AUTO) 0.06 K/uL (0.00-0.20); BASOPHILS % (AUTO) 0.7 % (0.0-5.0); EOSINOPHILS # (AUTO) 0.12 K/uL (0.00-0.70); EOSINOPHILS % (AUTO) 1.5 % (0.0-8.0); HEMATOCRIT 34.3 % (42-54); IMMATURE GRANULOCYTE ABSOLUTE 0.03 K/uL (0-1); LYMPHOCYTES # (AUTO) 0.9 K/uL (1.0-4.8); LYMPHOCYTES % (AUTO) 11.3 % (21.0-51.0); MEAN CORPUSCULAR HEMOGLOBIN 29.1 pg (27.0-33.0); MEAN CORPUSCULAR HGB CONC 32.4 g/dL (32.0-36.0); MONOCYTES # (AUTO) 0.9 K/uL (0.1-1.0); MONOCYTES % (AUTO) 11.6 % (3.0-13.0); NEUTROPHILS % (AUTO) 74.5 % (40.0-77.0); PLATELET COUNT (AUTO) 296 K/uL (130-400); RED BLOOD CELL COUNT(AUTO) 3.81 MIL/uL (4.50-6.20); RED CELL DISTRIBUTION WIDTH 12.5 % (11.0-15.5); WHITE BLOOD COUNT (AUTO) 8.1 K/uL (4.8-10.8)
[2024-04-13 04:32] LABS: ALBUMIN 3.2 g/dL (3.5-5.0); BILIRUBIN,TOTAL 0.5 mg/dL (0.2-1.0); MAGNESIUM 1.8 mg/dL (1.80-2.40); POTASSIUM 4.4 mmol/L (3.5-5.1); TOTAL PROTEIN, SERUM 7.5 g/dL (6.0-8.3)
[2024-04-13] MEDS: MAGNESIUM 2GM PREMIX 50ML 50 ML IV PRN (04:40)
[2024-04-13] MEDS: ENOXAPARIN SODIUM 30 MG/0.3 ML SQ SCH (08:53)
[2024-04-13] MEDS ORDERED: IOHEXOL-350 75 ML VIAL IV ONE (10:55)
[2024-04-13] MEDS ORDERED: LEVO-70 PO (16:49)
== END 2024-04-13 19:47 | disposition home or self-care (01) | DRG 291 ==
LOC: EDH 13:57 → EDHIP 16:13 → 4AH 18:13
PROVIDERS: ADMIT Hospitalist; ATTEND Hospitalist
PROC: 0W9B3ZZ Drainage of Left Pleural Cavity, Percutaneous Approach (ICD-10-PCS; principal; 2024-04-12)
DX: I11.0 Hypertensive heart disease with heart failure (principal); I50.33 Acute on chronic diastolic (congestive) heart failure; J96.01 Acute respiratory failure with hypoxia; J98.11 Atelectasis; D64.9 Anemia, unspecified; K59.00 Constipation, unspecified; E11.65 Type 2 diabetes mellitus with hyperglycemia; I25.10 Atherosclerotic heart disease of native coronary artery without angina pectoris; Z79.899 Other long term (current) drug therapy; Z91.119 Patient's noncompliance with dietary regimen due to unspecified reason; Z95.1 Presence of aortocoronary bypass graft; Z95.5 Presence of coronary angioplasty implant and graft
CPT/HCPCS: 36415; 36600; 71045; 71250; 71260; 80048; 80053; 82803; 82945; 82948; 83036; 83615; 83735; 83880; 83986; 84155; 84157; 84484; 85025; 85610; 85730; 87071; 87205; 87635; 87804; 89051; 93005; 93306; 94664; 94760; 96374; 96375; 96376; G0378; J1650; J1940; J2270; J3475; J3490; Q9967